=== PATIENT | male | born 1965 | race African-American/Black ===

== ENCOUNTER 2020-08-28 18:57 | Emergency (ER) | payer OTHER ==
[~2020-08-28] VITALS: Ht 188 cm; Wt 101.6 kg
[~2020-08-28 18:57] MED LIST: LISINOPRIL20 MG PO; NEXIUM40 MG PO
[2020-08-28] MEDS ORDERED: ONDANSETRON HCL INJ 2MG/ML 2ML 2 MG/ML VIAL IV STA (19:29)
[2020-08-28] MEDS ORDERED: MORPHINE SULFATE INJ 2 MG/ML SYR IV STA (19:29)
[2020-08-28] MEDS ORDERED: PANTOPRAZOLE 40 MG 10ML VIAL IV STA (19:29)
[2020-08-28] MEDS ORDERED: SODIUM CHLORIDE 0.9% 1000ML 1,000 ML IV ONE (19:30)
[2020-08-28 20:01] LABS: BASOPHILS # (AUTO) 0.1 (0.0-0.1); BASOPHILS % 0.4 % (0.0-1.0); EOSINOPHILS % 0.2 % (0.0-6.0); HEMATOCRIT 52.6 % (38.2-49.6); HEMOGLOBIN 17.6 g/dL (14.0-18.0); LYMPHOCYTES # (AUTO) 2.2 (1.0-3.2); LYMPHOCYTES % 13.5 % (18.0-39.1); MEAN CORPUSCULAR HGB CONC 33.5 g/dL (31-35); MEAN CORPUSCULAR VOLUME 86.8 fL (81-99); MONOCYTES # (AUTO) 0.5 (0.2-0.8); MONOCYTES % 2.9 % (4.4-11.3); NEUTROPHILS # (AUTO) 13.2 (2.1-6.9); NEUTROPHILS % 82.5 % (38.7-80.0); PLATELET COUNT 332 x10e3/uL (140-360); RED BLOOD COUNT 6.06 x10e6/uL (4.3-5.7); RED CELL DISTRIBUTION WIDTH 14.2 % (11.7-14.4)
[2020-08-28 20:06] LABS: CLARITY,URINE SL CLOUDY (CLEAR); COLOR,URINE STRAW (YELLOW); KETONES,URINE 2+ (NEGATIVE); LEUKOCYTE ESTERASE ,URINE NEGATIVE (NEGATIVE); NITRITE,URINE NEGATIVE (NEGATIVE); PROTEIN,URINE DIPSTICK 1+ (NEGATIVE); URINE UROBILINOGEN 0.2 mg/dL (0.2 - 1)
[2020-08-28 20:16] LABS: AMYLASE 153 U/L (25-125); LIPASE 75 U/L (8-78)
[2020-08-28 20:18] LABS: ALANINE AMINOTRANSFERASE 32 IU/L (0-55); ALBUMIN 4.4 g/dL (3.5-5.0); ALBUMIN/GLOBULIN RATIO 1.1 (0.8-2.0); ALKALINE PHOSPHATASE 81 IU/L (40-150); ANION GAP 19.6 mmol/L (8-16); BLOOD UREA NITROGEN 12 mg/dL (7-26); BUN/CREATININE RATIO 9 (6-25); CALCIUM 10.1 mg/dL (8.4-10.2); CARBON DIOXIDE 22 mmol/L (22-29); CHLORIDE 103 mmol/L (98-107); CREATININE, SERUM 1.37 mg/dL (0.72-1.25); EST GLOMERULAR FILTRATION RATE > 60 ML/MIN (60-); GLUCOSE 133 mg/dL (74-118); POTASSIUM 3.6 mmol/L (3.5-5.1); SODIUM 141 mmol/L (136-145)
[2020-08-28 20:19] LABS: AMORPHOUS SEDIMENT,URINE FEW (FEW); BACTERIA,URINE RARE /HPF
[2020-08-28] MEDS ORDERED: IOPAMIDOL 370 MG/ML 200 ML INFUS..BTL INJ ONE (20:50)
[2020-08-28] MEDS ORDERED: SODIUM CHLORIDE 0.9% 50ML 50 ML ONE (20:50)
== END 2020-08-28 23:00 | disposition home or self-care (01) ==
LOC: ER 19:42
DX: R10.32 Left lower quadrant pain (principal); R11.2 Nausea with vomiting, unspecified; K51.30 Ulcerative (chronic) rectosigmoiditis without complications; R19.7 Diarrhea, unspecified; I10 Essential (primary) hypertension; K21.9 Gastro-esophageal reflux disease without esophagitis
CPT/HCPCS: 36415; 74177; 80053; 81001; 82150; 83690; 85025; 99284; C9113; J2405; J7030; Q9967; J2270

== ENCOUNTER → 2022-01-20 | Day surgery (SDC) | payer OTHER ==
[~2022-01-20] MED LIST changes: +EPINEPHRINE HCL 1:1000 1ML 1 MG/ML AMP IV ONE; +ESMOLOL HCL 100MG/10ML 10 MG/ML VIAL IV ONE; +HYOSCYAMINE SULFATE 0.5 MG/ML INJ IV ONE; +LIDOCAINE HCL 2% LOCAL INJ 5 ML SDV VIAL INJ ONE; +PROPOFOL IV EMULSION 10 MG/ML 20 ML VIAL IV ONE
[2022-01-20 13:35] VITALS: BP 116/79
== END | disposition home or self-care (01) ==
LOC: OR 09:57
PROVIDERS: ATTEND Internal Medicine Gastroenterology
DX: Z12.11 Encounter for screening for malignant neoplasm of colon (principal); K63.5 Polyp of colon; K29.70 Gastritis, unspecified, without bleeding; K31.A0 Gastric intestinal metaplasia, unspecified; K22.70 Barrett's esophagus without dysplasia; K44.9 Diaphragmatic hernia without obstruction or gangrene; K21.9 Gastro-esophageal reflux disease without esophagitis; K57.30 Diverticulosis of large intestine without perforation or abscess without bleeding; K64.8 Other hemorrhoids; I10 Essential (primary) hypertension; Z79.899 Other long term (current) drug therapy; Z85.46 Personal history of malignant neoplasm of prostate; Z80.0 Family history of malignant neoplasm of digestive organs
CPT/HCPCS: 43239; 43450; 45380; 93005; C9113; J0171; J1980; J2001

== ENCOUNTER 2022-06-04 09:35 | Inpatient (IN) | payer OTHER ==
[~2022-06-04] VITALS: Ht 188 cm; Wt 101.6 kg
[~2022-06-04 09:35] MED LIST changes: -EPINEPHRINE HCL 1:1000 1ML 1 MG/ML AMP IV ONE; -ESMOLOL HCL 100MG/10ML 10 MG/ML VIAL IV ONE; -HYOSCYAMINE SULFATE 0.5 MG/ML INJ IV ONE; -LIDOCAINE HCL 2% LOCAL INJ 5 ML SDV VIAL INJ ONE; -PROPOFOL IV EMULSION 10 MG/ML 20 ML VIAL IV ONE
[2022-06-04] MEDS ORDERED: SODIUM CHLORIDE 0.9% 1000ML 1,000 ML IV STA ×2 (10:36→12:07)
[2022-06-04] MEDS ORDERED: ONDANSETRON HCL INJ 2MG/ML 2ML 2 MG/ML VIAL IV STA (10:36)
[2022-06-04] MEDS ORDERED: DICYCLOMINE HCL 20 MG/2 ML VIAL IM ONE (10:45)
[2022-06-04 11:29] LABS: BASOPHILS # (AUTO) 0.1 (0.0-0.1); BASOPHILS % 0.8 % (0.0-1.0); EOSINOPHILS % 0.4 % (0.0-6.0); HEMOGLOBIN 17.8 g/dL (14.0-18.0); LYMPHOCYTES # (AUTO) 1.7 (1.0-3.2); LYMPHOCYTES % 16.1 % (18.0-39.1); MEAN CORPUSCULAR HEMOGLOBIN 28.5 pg (28-32); MEAN CORPUSCULAR VOLUME 86.5 fL (81-99); MONOCYTES # (AUTO) 0.5 (0.2-0.8); NEUTROPHILS # (AUTO) 8.1 (2.1-6.9); NEUTROPHILS % 77.3 % (38.7-80.0); PLATELET COUNT 310 x10e3/uL (140-360); RED BLOOD COUNT 6.24 x10e6/uL (4.3-5.7); RED CELL DISTRIBUTION WIDTH 13.9 % (11.7-14.4)
[2022-06-04 11:40] LABS: CLARITY,URINE CLEAR (CLEAR); COLOR,URINE YELLOW (YELLOW); KETONES,URINE NEGATIVE (NEGATIVE); LEUKOCYTE ESTERASE ,URINE NEGATIVE (NEGATIVE); NITRITE,URINE NEGATIVE (NEGATIVE); PROTEIN,URINE DIPSTICK 2+ (NEGATIVE); URINE UROBILINOGEN 0.2 mg/dL (0.2 - 1)
[2022-06-04 11:44] LABS: BACTERIA,URINE FEW /HPF; EPITHELIAL CELLS,URINE FEW /LPF; RBC,URINE 0-5 /HPF (0-5); WBC,URINE (MAN) 0-5 /HPF (0-5)
[2022-06-04 11:46] LABS: ALBUMIN 4.1 g/dL (3.5-5.0); ANION GAP 16.1 mmol/L (8-16); CALCIUM 10.2 mg/dL (8.4-10.2); CREATININE, SERUM 1.46 mg/dL (0.72-1.25); MAGNESIUM 1.9 MG/DL (1.3-2.1); POTASSIUM 4.1 mmol/L (3.5-5.1)
[2022-06-04] MEDS ORDERED: Morphine 4mg INJECTION 4 MG/ML INJ IV STA (12:07)
[2022-06-04] MEDS ORDERED: PROMETHAZINE 12.5MG/ NACL 0.9% 12.5 MG/50 ML BAG IV ONE (12:15)
[2022-06-04] MEDS ORDERED: DIATRIZOATE MEGL/DIATRIZOA SOD 30 ML BTL PO ONE (12:25)
[2022-06-04] MEDS ORDERED: IOPAMIDOL 370 MG/ML 100 ML INFUS..BTL INJ ONE (12:50)
[2022-06-04] MEDS ORDERED: BENZOCAINE/TETRACAINE/BUTAMBEN AERO SPRAY 56 GM CAN TOP ONE (14:15)
[2022-06-04] MEDS ORDERED: ONDANSETRON HCL INJ 2MG/ML 2ML 2 MG/ML VIAL IV PRN (14:30)
[2022-06-04] MEDS: SODIUM CHLORIDE 0.9% 1000ML 1,000 ML IV SCH ×2 (15:19→23:49)
[2022-06-04] MEDS: HYDRALAZINE HCL 20 MG/ML VIAL IV PRN (15:42)
[2022-06-04] MEDS ORDERED: PROMETHAZINE 12.5MG/ NACL 0.9% 12.5 MG/50 ML BAG IV PRN (16:45)
[2022-06-04 18:00] VITALS: BP 134/88
[2022-06-04 20:00] LABS: CREATINE KINASE 141 IU/L (30-200)
[2022-06-04] MEDS ORDERED: Morphine 2mg Syringe 2 MG/ML SYR IV PRN (22:00)
[2022-06-05 00:36] LABS: CREATINE KINASE MB 1.5 ng/mL (0-5.0)
[2022-06-05] MEDS ORDERED: BENZOCAINE/TETRACAINE/BUTAMBEN AERO SPRAY 56 GM CAN ONE (00:50)
[2022-06-05] MEDS: SODIUM CHLORIDE 0.9% 1000ML 1,000 ML IV SCH ×3 (05:48→23:47)
[2022-06-05 05:55] LABS: BASOPHILS # (AUTO) 0.1 (0.0-0.1); BASOPHILS % 0.5 % (0.0-1.0); EOSINOPHILS % 0.3 % (0.0-6.0); HEMATOCRIT 46.2 % (38.2-49.6); HEMOGLOBIN 15.3 g/dL (14.0-18.0); LYMPHOCYTES # (AUTO) 2.4 (1.0-3.2); LYMPHOCYTES % 18.3 % (18.0-39.1); MEAN CORPUSCULAR HEMOGLOBIN 28.8 pg (28-32); MEAN CORPUSCULAR HGB CONC 33.1 g/dL (31-35); MEAN CORPUSCULAR VOLUME 86.8 fL (81-99); MONOCYTES # (AUTO) 0.9 (0.2-0.8); MONOCYTES % 6.7 % (4.4-11.3); NEUTROPHILS # (AUTO) 9.6 (2.1-6.9); NEUTROPHILS % 73.7 % (38.7-80.0); PLATELET COUNT 309 x10e3/uL (140-360); RED BLOOD COUNT 5.32 x10e6/uL (4.3-5.7); RED CELL DISTRIBUTION WIDTH 13.7 % (11.7-14.4)
[2022-06-05 06:15] LABS: ALBUMIN 3.3 g/dL (3.5-5.0); ANION GAP 12.7 mmol/L (8-16); CALCIUM 8.5 mg/dL (8.4-10.2); CREATININE, SERUM 1.37 mg/dL (0.72-1.25); POTASSIUM 3.7 mmol/L (3.5-5.1)
[2022-06-05 06:25] LABS: CREATINE KINASE 184 IU/L (30-200)
[2022-06-05 12:03] VITALS: BP 158/97
[2022-06-05] MEDS: HYDRALAZINE HCL 20 MG/ML VIAL IV PRN (16:43)
[2022-06-05 19:40] VITALS: BP 166/101
[2022-06-05 20:00] VITALS: BP 160/95
[2022-06-05] MEDS: BISACODYL 10 MG SUPP PR SCH (21:00)
[2022-06-05] MEDS ORDERED: ACETAMINOPHEN 1000 MG/100 ML IV PRN (22:45)
[2022-06-06] MEDS ORDERED: ACETAMINOPHEN 1000 MG/100 ML IV SCH
[2022-06-06 00:45] VITALS: BP 157/90
[2022-06-06 04:00] VITALS: BP 155/93
[2022-06-06] MEDS: SODIUM CHLORIDE 0.9% 1000ML 1,000 ML IV SCH ×3 (05:56→21:06)
[2022-06-06 06:52] LABS: BASOPHILS # (AUTO) 0.1 (0.0-0.1); BASOPHILS % 0.8 % (0.0-1.0); EOSINOPHILS # (AUTO) 0.1 (0.0-0.4); HEMATOCRIT 44.9 % (38.2-49.6); HEMOGLOBIN 14.6 g/dL (14.0-18.0); LYMPHOCYTES # (AUTO) 2.1 (1.0-3.2); LYMPHOCYTES % 19.1 % (18.0-39.1); MEAN CORPUSCULAR HEMOGLOBIN 28.6 pg (28-32); MEAN CORPUSCULAR HGB CONC 32.5 g/dL (31-35); MONOCYTES # (AUTO) 0.6 (0.2-0.8); MONOCYTES % 5.7 % (4.4-11.3); NEUTROPHILS # (AUTO) 8.2 (2.1-6.9); NEUTROPHILS % 73.1 % (38.7-80.0); PLATELET COUNT 269 x10e3/uL (140-360); RED CELL DISTRIBUTION WIDTH 13.9 % (11.7-14.4)
[2022-06-06] MEDS ORDERED: FUROSEMIDE INJ 10 MG/ML 2 ML VIAL IV ONE (07:00)
[2022-06-06 07:08] LABS: ANION GAP 14.5 mmol/L (8-16); CALCIUM 8.3 mg/dL (8.4-10.2); CREATININE, SERUM 1.21 mg/dL (0.72-1.25); POTASSIUM 3.5 mmol/L (3.5-5.1)
[2022-06-06 08:43] VITALS: BP 154/98
[2022-06-06] MEDS: BISACODYL 10 MG SUPP PR SCH (09:31)
[2022-06-06 12:03] VITALS: BP 131/94
[2022-06-06 16:00] VITALS: BP 155/97
[2022-06-06] MEDS: HYDRALAZINE HCL 20 MG/ML VIAL IV PRN (17:19)
[2022-06-06 20:00] VITALS: BP 159/95
[2022-06-07] MEDS: SODIUM CHLORIDE 0.9% 1000ML 1,000 ML IV SCH (05:03)
[2022-06-07 05:20] VITALS: BP 149/94
[2022-06-07 08:34] VITALS: BP 146/82
[2022-06-07] MEDS ORDERED: PANTOPRAZOLE SOD 40 MG TABEC PO PRN (10:00)
[2022-06-07 12:02] VITALS: BP 130/90
[2022-06-08] MEDS ORDERED: LISINOPRIL 20 MG TAB PO SCH (09:00)
== END 2022-06-07 16:26 | disposition home or self-care (01) | DRG 390 ==
LOC: ER 09:52 → ERHOLD 14:31 → MED/SURG3 06-05 11:37
PROVIDERS: ADMIT Family Medicine; ATTEND Family Medicine
PROC: 0D9670Z Drainage of Stomach with Drainage Device, Via Natural or Artificial Opening (ICD-10-PCS; principal; 2022-06-04)
DX: K56.609 Unspecified intestinal obstruction, unspecified as to partial versus complete obstruction (principal); I10 Essential (primary) hypertension; K21.9 Gastro-esophageal reflux disease without esophagitis; Z20.822 Contact with and (suspected) exposure to COVID-19; Z90.49 Acquired absence of other specified parts of digestive tract; Z85.46 Personal history of malignant neoplasm of prostate
CPT/HCPCS: 0223U; 36415; 74018; 74022; 74177; 80048; 80053; 81001; 82550; 82553; 83690; 83735; 84484; 85025; 96361; 99284; J0360; J0500; J1940; J2270; J2405; J2543; J2550; J7030; Q9963; Q9967

== ENCOUNTER → 2022-06-25 | Outpatient (CLI) | payer OTHER | LOC: DX 10:22 | PROVIDERS: ATTEND Surgery | DX: R10.9 Unspecified abdominal pain (principal) | CPT/HCPCS: 74246; 74248 ==